=== PATIENT | female | born 1965 | race Two or more races ===

== ENCOUNTER 2024-09-01 12:24 | Inpatient (IN) | payer MEDICAID, SELFPAY ==
--- NOTE | 2024-09-01 | XR_ITS ---
Examination: MRI right foot, without contrast Date and time of exam: September 01, 2024 1816 hours INDICATIONS: Patient stepped on glass beginning 4 days ago with laceration to the plantar surface of the foot between the right first and second metatarsals Technique: Multiple axial sagittal and coronal images of the right foot have been obtained with the Siemens high-resolution 1.5 Chio MRI scanner. Images obtained include T2-weighted fat-suppressed sagittal sections, TR 3500, TE 46, T2 weighted coronal fat suppressed images, TR 3050, TE 84, T2-weighted transverse fat suppressed images, TR 3260, TE 63, proton density transverse images, TR 4720 TE 46, and T1 weighted coronal images, TR 560, TE 13. Findings: Although the images are degraded by patient motion There is edema in the subcutaneous tissue especially dorsum of the foot and also plantar to the second digit Axial image 11 demonstrates early soft tissue abscess multiloculated in the soft tissue between the first and second proximal phalanges, closer to the second digit side, measuring 22 x 11 mm, dorsal Negative for osteomyelitis IMPRESSION: Early soft tissue abscess in the subcutaneous tissue dorsum of the foot between the first and second proximal phalanges as above, measuring 22 x 11 mm, recommend surgical consultation Negative for osteomyelitis
[2024-09-01 13:03] VITALS: BP 126/73; PULSE 80; RESP 18; TEMP 36.7; O2SAT 99; BMI 26.4
--- NOTE | 2024-09-01 13:03 | XR_ITS ---
Examination: Foot, right, 3 views Technique: AP, oblique, lateral views foot, 3 views Date and time of exam: September 01, 2024 1311 hours INDICATIONS: Stepped on glass 3 days ago with redness swelling and pain between the first and second digits. FINDINGS: Soft tissue swelling with air densities between the first and second digits No opaque foreign body No soniya cortical bone destruction IMPRESSION: No soniya cortical bone destruction MRI foot without contrast follow-up would best assess for soft tissue abscess
--- NOTE | 2024-09-01 13:05 | PD.EDRME ---
Rapid Medical Screening Exam RME Arrival date/time: 09/01/24 12:24 59-year-old female presents the emergency department for complaints of infection right foot patient reports stepped on a piece of glass and has infection of the right foot injury 4 days ago Chief Complaint: Extremity Injury, Lower Vital signs: Vital Signs Temperature 98.1 F 09/01/24 13:03 Pulse Rate 80 09/01/24 13:03 Respiratory Rate 18 09/01/24 13:03 Blood Pressure 126/73 09/01/24 13:03 Pulse Oximetry (%) 99 09/01/24 13:03 Oxygen Delivery Method Room Air 09/01/24 13:03
[2024-09-01 13:47] LABS: Lactate (Lactic Acid) 1.2 mMol/L (0.4-2.0)
[2024-09-01 14:06] LABS: Basophils % (Auto) 0 % (0-2.5); Eosinophils % (Auto) 0 % (0-10); Hematocrit 35.5 % (36.0-46.0); Hemoglobin 12.1 g/dL (12.0-16.0); Immature Granulocytes % (Auto) 1 % (0-0); Immature Granulocytes Auto 0.05 Thou/mm3 (0.00-0.00); Lymphocytes # (Auto) 1.2 Thou/mm3 (1.0-4.8); Lymphocytes % (Auto) 12 % (10-50); Mean Corpuscular HGB Conc 34.1 g/dl (31.0-37.0); Mean Corpuscular Hemoglobin 30.9 pg (25.0-35.0); Mean Corpuscular Volume 91 fL (80-100); Monocytes # (Auto) 0.6 Thou/mm3 (0.0-0.8); Monocytes % (Auto) 6 % (0-12); Neutrophils # (Auto) 8.4 Thou/mm3 (1.8-7.7); Neutrophils % (Auto) 82 % (37-80); Nucleated Red Blood Cell % 0 /100 WBC (0); Platelet Count 182 Thou/mm3 (140-440); RDW Standard Deviation 40.2 fL (36.4-46.3); Red Blood Count 3.91 Miln/mm3 (4.00-5.20); White Blood Count 10.3 Thou/mm3 (3.6-11.0)
[2024-09-01 14:21] LABS: Sed Rate (ESR) 74 mm/hr (0-30)
[2024-09-01 14:27] LABS: Alanine Aminotransferase 9 U/L (10-49); Albumin, Serum 4.8 gm/dL (3.4-4.8); Albumin/Globulin Ratio 1.5 (1.2-2.2); Alkaline Phosphatase 104 U/L (46-116); Anion Gap 13 (7-16); Aspartate Amino Transferase 11 U/L (0-34); BUN/Creatinine Ratio 23 Ratio (12-20); Bilirubin,Total 0.9 mg/dL (0.3-1.2); Blood Urea Nitrogen 16 mg/dL (9-23); Calcium 10.3 mg/dL (8.3-10.6); Calcium (Corrected) 10.3 mg/dL (8.5-10.1); Carbon Dioxide 24.1 mMol/L (20.0-31.0); Chloride 100 mMol/L (98-107); Creatinine (Component) 0.7 mg/dL (0.6-1.3); Estimated Creatinine Clearance 69.9 mL/min (>60); Globulin 3.1 gm/dL (2.3-3.5); Glucose 263 mg/dL (74-106); Osmolality,Calculated 284 (275-295); Procalcitonin 0.33 ng/ml (0.0-0.49); Sodium 137 mMol/L (136-145); Total Protein 7.9 gm/dL (5.7-8.2); eGFR > 60 See Note
[2024-09-01 15:54] LABS: Glucose Estimated Average 275 mg/dL (80-131); Hemoglobin A1C 11.2 % Hgb (4.8-6.0)
[2024-09-01 16:29] LABS: C-Reactive Protein > 10.0 mg/dL (0.0-0.9)
[2024-09-01 17:32] VITALS: BP 133/75; PULSE 92; RESP 17; TEMP 36.9; O2SAT 99
--- NOTE | 2024-09-01 17:48 | EDNOTE_ITS ---
Lower Extremity Injury RME/HPI General Chief Complaint: Extremity Injury, Lower Stated Complaint: WORK UP FOR OSTEOMYELITIS Time Seen by Provider: 09/01/24 17:44 Arrival date/time: 09/01/24 12:24 59 year old female with past medical history of DM present to emergency room with daughter with c/o of right foot swelling, redness, pain s/p accidentally stepping in sharp glass 4 days ago. patient is unsure to tetanus status patient went to her PCP which prompt her to come to Ed for evaluation LOCATION: right foot SEVERITY: Symptoms are described as being severe with limitations on activities of daily living QUALITY: Symptoms are described as being dull or achy CONTEXT: step in glass DURATION/TIMING: The symptoms started approximately 4 day ago and have been constant this then, and have been progressive getting worse. ASSOCIATED SYMPTOMS: The patient is unable to identify any other associated symptoms. MODIFYING FACTORS: The patient is unable to identify any alleviating or aggravating symptoms. PERTINENT ROS: denies IVDU, denies any penetrating trauma, no fever, no unexplained nausea or vomiting, no headache, no chest pain/shortness of breath REVIEW OF SYSTEMS: See History of Present Illness - with the exception of those mentioned in the history of present illness, all other systems reviewed and reported as negative GENERAL: In general the patient is awake, interactive, in an emergency department gurney. HEAD/EYES/EARS/NOSE/THROAT: normo-cephalic, atraumatic, mucus membranes are moist, anicteric, palpebral conjunctiva is pink, trachea is midline. CARDIOVASCULAR: regular rate and regular rhythm, no murmurs, heart sounds are not distant, strong pulses in all four extremities that are equal and symmetric bilateral upper and lower extremities, normal capillary refill. CHEST/PULMONARY: normal chest rise and fall, good air movement, clear to auscultation bilaterally, normal inspiratory to expiratory ratios without evidence of respiratory distress. NECK: No midline/Paraspinal tenderness, no step off ROM/Strenght intact No Kernig and bruzinski sign. No trauma ABDOMEN: soft, not tender, no masses appreciated BACK: normal range of motion without pain. NEUROLOGICAL: cranio-facial features are symmetric, moves all four extremities equally without obvious limitations or weakness. EXTREMITY: right foot erythema, warm to touch,and tenderness, foot pad single puncture wound webspace of greater toe and 2nd MTP, no tenderness to palpation over the long bones or large joints of the bilateral upper extremities, SKIN: warm, dry, well-perfused, no jaundice, no rash, no telangiectasias or petechia. PSYCH: calm, cooperative, no evidence of psychosis or agitation RME / HPI RME / HPI Narrative: 09/01/24 12:24 59-year-old female presents the emergency department for complaints of infection right foot patient reports stepped on a piece of glass and has infection of the right foot injury 4 days ago Related Data Allergies Allergy/AdvReac Type Severity Reaction Status Date / Time NKA Allergy Unknown Uncoded 09/01/24 12:26 Course Quality Measures none Orders Category Date Time Status Admit to Inpatient Status Routine Admission 09/01/24 18:15 Active Patient Condition Routine Admission 09/01/24 18:15 Ordered MRI Screening NOW Care 09/01/24 17:52 Active Notify provider NEEDED Care 09/01/24 18:15 Active Consult to General Surgery Stat Cons 09/01/24 18:18 Ordered MR foot RT wo con Stat Exams 09/01/24 Ordered XR foot comp RT min 3V Stat Exams 09/01/24 13:03 Completed A1C [Glycohemoglobin w (eAG)] Stat Lab 09/01/24 13:26 Completed Blood Culture (Lab) Stat Lab 09/01/24 13:26 Received CBC AM DRAW Lab 09/02/24 05:00 Ordered CBC AM DRAW Lab 09/03/24 05:00 Ordered CBC AM DRAW Lab 09/04/24 05:00 Ordered CBC Stat Lab 09/01/24 13:26 Completed CMP [Comprehensive Metabolic Panel] Stat Lab 09/01/24 13:26 Completed CRP [C-Reactive Protein] Stat Lab 09/01/24 13:26 Completed Comprehensive Metabolic Panel AM DRAW Lab 09/02/24 05:00 Ordered Comprehensive Metabolic Panel AM DRAW Lab 09/03/24 05:00 Ordered Comprehensive Metabolic Panel AM DRAW Lab 09/04/24 05:00 Ordered ESR [Sed Rate (ESR)] Stat Lab 09/01/24 13:26 Completed Lactic Acid [Lactate (Lactic Acid)] Stat Lab 09/01/24 13:26 Completed MRSA Nasal Screen Stat Lab 09/01/24 18:19 Ordered Magnesium AM DRAW Lab 09/02/24 05:00 Ordered Phosphorous AM DRAW Lab 09/02/24 05:00 Ordered Procalcitonin Stat Lab 09/01/24 13:26 Completed Acetaminophen Tab [Tylenol Tab] Med 09/01/24 18:15 Active 650 mg PO Q6H PRN Heparin Inj Med 09/01/24 22:00 Active 5,000 unit SC Q8HR Ondansetron Inj [Zofran Inj] Med 09/01/24 18:15 Active 4 mg IV Q6H PRN Tetanus, Diphtheria Toxoids/Pf [Tenivac-Adult] Med 09/01/24 17:48 Discontinued 0.5 ml IMI .ONCE ONE Vancomycin Pharmacy to Dose Med 09/01/24 17:49 Discontinued 1 each IV X1 ONE Vancomycin/Water 1250 mg Ivpb 250 ml Med 09/01/24 18:00 Active IV X1 cefTRIAXone/D5w 1gm IV premix [Rocephin/D5w 1gm IV Med 09/01/24 17:48 Discontinued premix] 1 gm in 50 ml IV X1 oxyCODONE/APAP 5/325 [Percocet 5/325] Med 09/01/24 18:15 Active 1 tab PO Q6H PRN Code Status Routine Oth 09/01/24 18:15 Ordered Oxygen Delivery PRN RT 09/01/24 18:15 Active Reevaluation(s) Reevaluation #1: patient and family agreeable with admission for IV antibiotics MRI foot is pending Vital Signs Vital signs: Vital Signs Temperature 98.1 F 09/01/24 13:03 Pulse Rate 80 09/01/24 13:03 Respiratory Rate 18 09/01/24 13:03 Blood Pressure 126/73 09/01/24 13:03 Pulse Oximetry (%) 99 09/01/24 13:03 Oxygen Delivery Method Room Air 09/01/24 13:03 Extremity Injury, Lower MDM Narrative MDM Narrative:: DISPOSITION: Emergency Department nursing documentation was reviewed including triage complaint, associated symptoms, administration of medications, response to therapy and vital signs. Given the history, physical exam, and review of laboratory and imaging studies the patient is determined to be unsafe for discharge and is being moved into the hospital for further diagnostic tests, treatments, stabilization, and monitored response to therapy. I communicated the history, physical exam, pertinent laboratory and imaging studies to the inpatient physician. The inpatient physician has access to electronic copies of all emergency department laboratory testing and imaging studies as well as medications ordered and administered. Patient data External records reviewed:: [facility] previous records Clinical information provided by:: patient and family Social determinants that could affect healthcare access:: none Patient has the following chronic illnesses:: DM How is presenting disease/condition affected by chronic disease/condition?: exacerbated by Evaluation data The following diagnostics were reviewed and interpreted by me:: lab results and radiology exam(s) Lab and/or radiology exams considered but not ordered:: n/a Interpretation Summary: xray:?Soft tissue swelling with air densities between the first and second digits No opaque foreign body No soniya cortical bone destruction IMPRESSION: No soniya cortical bone destruction MRI foot without contrast follow-up would best assess for soft tissue abscess CRP >10 Esr + lactic/proc: wnl blood glucose 234 MRI foot pending Medications / Prescriptions Medications or Prescriptions considered but not ordered:: n/a Medication administrations:: Medication Administration History Acetaminophen (Acetaminophen 325 Mg Tablet) 650 mg PO Q6H PRN PRN Reason: Fever >100.3 or pain 1-3 Stop: 10/01/24 18:14 Heparin Sodium (Porcine) (Heparin Sod Inj 5000 Unit/Ml Vial) 5,000 unit SC Q8HR DAVY Stop: 09/15/24 21:59 Vancomycin HCl (Vancomycin/Water 1250 Mg Ivpb) 250 mls @ 120 mls/hr IV X1 ONE Stop: 09/01/24 20:04 Ondansetron HCl (Ondansetron Inj 2 Mg/Ml Inj 2 Ml) 4 mg IV Q6H PRN; Protocol PRN Reason: NAUSEA OR VOMITING Stop: 10/01/24 18:14 Oxycodone/Acetaminophen (Oxycodone/Apap 5/325 Tablet) 1 tab PO Q6H PRN PRN Reason: PAIN SCALE 4-10(Mod-Sev Stop: 09/06/24 18:14 Discontinued Medications Ceftriaxone Sodium/Dextrose (Rocephin/D5w 1gm Iv Premix) 1 gm in 50 mls @ 100 mls/hr IV X1 ONE Stop: 09/01/24 18:17 Pharmacy Consult (Vancomycin Pharmacy To Dose 1 Each Each) 1 each IV X1 ONE Stop: 09/01/24 17:50 Tetanus/Diphtheria Toxoids (Tetanus,Diphtheria Toxoids/Pf (Adult) 0.5 Ml Syringe) 0.5 ml IMi .ONCE ONE Stop: 09/01/24 17:49 as state above Consultations Consultation(s) initiated? (list below): Yes Consultation #1 (Physician, Specialty, Details): called out to hospitalist resident for admission, will evaluated patient for admission Diagnosis Most likely diagnosis given after review of the tests above:: foot abscess Admission Indicated Admission indicated?: indicated Admission Request Was there a request for admission?: Yes Admission Attestation Admission request attestation: Discussed case with [schultz ] from Hospitalist service regarding admission. Discussed patients ED course, exam findings, labs, and radiology results. The Hospitalist [agrees,] to accept the patient for admission. Disposition Plan Disposition Plan: Admit Discharge Plan Plan Patient Disposition: Admit Acute Care w/in Hospital Prescriptions/Referrals Referrals: No Primary/Family,Physician [Primary Care Provider] - In 1 week Problem List Clinical Impression: Abscess of foot Patient/Caregiver Discharge Instructions Print Language: Qatari Stand Alone Forms: [employer] Info., Patient Portal Info Letter
--- NOTE | 2024-09-01 18:20 | ESHP_ITS ---
<Statement entered by Jeannette Alvarez MD - 09/02/24 07:39> Patient was seen and examined by me personally. I have directly supervised and reviewed documentation by the team resident and agree with its findings with any exceptions or additional findings as below. Plan of care was discussed with the attending, Dr. Chou. New admission today. Patient is a 59-year-old female with past medical history of type 2 diabetes who presented to the ED on 09/01/2024 due to pain and swelling from the right foot after stepping on a piece of glass 4 days ago. On examination there is edema and erythema between the first and second toes. Foot MRI is pending. Patient was admitted for right foot cellulitis possible abscess, Dr. Aquino will be consulted to follow. Initiated IV Zosyn and doxycycline. Jeannette Alvarez, PGY-2 Documentation for date of: 09/01/24 HPI History of Present Illness Chief complaint: right foot pain, swelling History of present illness: Patient is a 59-year-old female with a previous medical history of type 2 diabetes who came to the ED due to pain, swelling from the right foot. Approximately 4 days ago when she was helping with cleaning she stepped on the shards of glass, after that she developed erythema, edema and pain in the right foot, mostly on the dorsum of the foot. Daughter at the bedside, reported that she tried to apply antimicrobial skin spray without effect. She reported that she is following up with central office frame wirer at [facility]. In the ED: Blood pressure 133/75, pulse 92, saturates well on room air, labs are significant for blood sugar 263, A1c 11.2, C-reactive protein more than 10, corrected calcium is 10.3. Foot x-ray showed soft tissue swelling with air densities between the first and second digits, no soniya cortical bone destruction. MRI of the foot without contrast is pending. Patient is being admitted for right foot cellulitis management and treatment. Social history: Denies smoking and alcohol intake. Surgical history: Denies surgeries Medications: Reports taking blood sugar medication, does not remember the name Allergies: Denies allergies Review of Systems Review of Systems Systems Reviewed: All systems reviewed, normal except as documented Exam Vital Signs Temp Pulse Resp BP Pulse Ox O2 Del Method 98.5 F 92 17 133/75 H 99 Room Air 09/01/24 17:32 09/01/24 17:32 09/01/24 17:32 09/01/24 17:32 09/01/24 17:32 09/01/24 17:32 Narrative Exam Physical Exam General: Awake and in no acute distress. Conversational and non-toxic appearing. HEENT: Normocephalic, atraumatic, mucous membranes moist. Heart: Regular rate and rhythm, no murmurs. Lungs: Clear to auscultation with no wheezing or crackles. Abdomen: Soft, nondistended, nontender, positive bowel sounds. ?No guarding or rebound tenderness. Neurologic: Alert and oriented x3, no gross neurological deficit, and patient able to move all 4 extremities. Extremities: Dorsum of the right foot is swollen, erythematous, hot to the touch. There's minimal amount of dried discharge in between I and II toes. Skin: Dorsum of the right foot is swollen, erythematous. Results: Labs 09/02/24 04:29 09/02/24 04:29 Labs: Short CBC 09/01/24 Range/Units 13:26 WBC 10.3 (3.6-11.0) Thou/mm3 Hgb 12.1 (12.0-16.0) g/dL Hct 35.5 L (36.0-46.0) % Plt Count 182 (140-440) Thou/mm3 BMP 09/01/24 13:26 Sodium 137 Potassium 4.0 Chloride 100 Carbon Dioxide 24.1 BUN 16 Creatinine 0.7 Glucose 263 H Calcium 10.3 Liver Function 09/01/24 Range/Units 13:26 Total Bilirubin 0.9 (0.3-1.2) mg/dL AST 11 (0-34) U/L ALT 9 L (10-49) U/L Alkaline Phosphatase 104 (46-116) U/L Albumin 4.8 (3.4-4.8) gm/dL Quality Measures Quality Measures VTE prophylaxis Medications Home Medications and Allergies Allergies Allergy/AdvReac Type Severity Reaction Status Date / Time NKA Allergy Unknown Uncoded 09/01/24 12:26 Visit Medications Acetaminophen (Acetaminophen 325 Mg Tablet) 650 mg PO Q6H PRN PRN Reason: Fever >100.3 or pain 1-3 Stop: 10/01/24 18:14 Heparin Sodium (Porcine) (Heparin Sod Inj 5000 Unit/Ml Vial) 5,000 unit SC Q8HR [facility] Stop: 09/15/24 21:59 Vancomycin HCl (Vancomycin/Water 1250 Mg Ivpb) 250 mls @ 120 mls/hr IV X1 ONE Stop: 09/01/24 20:04 Ondansetron HCl (Ondansetron Inj 2 Mg/Ml Inj 2 Ml) 4 mg IV Q6H PRN; Protocol PRN Reason: NAUSEA OR VOMITING Stop: 10/01/24 18:14 Oxycodone/Acetaminophen (Oxycodone/Apap 5/325 Tablet) 1 tab PO Q6H PRN PRN Reason: PAIN SCALE 4-10(Mod-Sev Stop: 09/06/24 18:14 Discontinued Medications Ceftriaxone Sodium/Dextrose (Rocephin/D5w 1gm Iv Premix) 1 gm in 50 mls @ 100 mls/hr IV X1 ONE Stop: 09/01/24 18:17 Pharmacy Consult (Vancomycin Pharmacy To Dose 1 Each Each) 1 each IV X1 ONE Stop: 09/01/24 17:50 Tetanus/Diphtheria Toxoids (Tetanus,Diphtheria Toxoids/Pf (Adult) 0.5 Ml Syringe) 0.5 ml IMi .ONCE ONE Stop: 09/01/24 17:49 Assessment & Plan Plan Patient is a 59-year-old female with a previous medical history of type 2 diabetes who came to the ED due to pain, swelling from the right foot. Patient is being admitted for right foot cellulitis management and treatment. #Right foot cellulitis Possible foreign body (glass shards) left in the foot. Patient's right foot is edematous and erythematous. Xray showed air densities in the right foot. Plan: - Zosyn 3.375 q6hr 09/01/24-current - Doxycyclin 100 BID 09/01/24-current - Foot MRI pending - surgery consulted - pain control as needed - blood cultures pending #Type 2 diabetes 09/01/24: A1c 11.2% Plan: - ISS with Accuchecks ACHS Health maintenance: FEN: carbohydrate consistent DVT prophylaxis: heparin 5000 sc q8h GI prophylaxis: none Dispo: med surg CODE STATUS: Full code Plan of care discussed with attending Dr. Chou, PGY-[address] Alvarez. Ana Bowden MD, PGY 1. Attending Provider Attestation/Addendum I, Suzanne Chou DO, attest that I was physically present for the ellis portions of the service and evaluated the patient with the resident and I reviewed and discussed the case with the resident and agree with the resident's findings and plans of care as documented above Patient is a 59-year-old female with past medical history of type 2 diabetes who presented to the ED due to worsening pain in her right foot after she had stepped on glass about 4 days ago. She is noted to have inflammation, edema, erythema and some dark discoloration between the first and second digit of her right foot, as well as dorsum of the metatarsal. She denies any purulent discharge. She denies any fevers or chills. X-ray was done in the ED showing soft tissue swelling with air density between the first and second digit, no evidence of osteomyelitis. MRI was subsequently done showing early soft tissue abscess in the subcutaneous tissue dorsum of the foot between first and second phalanges measuring 22 x 11 mm. Surgery was consulted. Will admit patient to med/surge for IV antibiotics for cellulitis and abscess of the right foot. Patient received tetanus shot in the ED. She is noted to have an A1c of 11.2. Patient states that she takes pills for her diabetes. Patient will need diabetic education and insulin upon discharge. Will obtain blood cultures as well.
[2024-09-01] MEDS: TETANUS,DIPHTHERIA TOXOIDS/PF (ADULT) 0.5 ML SYRINGE IMi (19:23)
[2024-09-01] MEDS: PIPER/TAZO 3.375 GM PREMIX 3.375 GM/50 ML BAG IV ×2 (19:25→23:37)
[2024-09-01 20:41] VITALS: BP 120/71; PULSE 88; RESP 17; TEMP 36.8; O2SAT 97; BMI 25.0
[2024-09-01] MEDS: DOXYCYCLINE INJ 100 MG in SODIUM CHLORIDE 0.9% (POP) 100 ML IV (22:14)
[2024-09-01] MEDS: HEPARIN SOD INJ 5000 UNIT/ML VIAL SC (22:20)
[2024-09-02] VITALS (8 sets, daily range): BP systolic 105–127; BP diastolic 62–77; PULSE 82–90; RESP 16–97; TEMP 36.2–37.4; O2SAT 97–99; BMI 25.1
[2024-09-02] MEDS: PIPER/TAZO 3.375 GM PREMIX 3.375 GM/50 ML BAG IV ×4 (05:32→23:31)
[2024-09-02 05:52] LABS: Basophils % (Auto) 0 % (0-2.5); Eosinophils % (Auto) 0 % (0-10); Hematocrit 31.2 % (36.0-46.0); Hemoglobin 10.8 g/dL (12.0-16.0); Immature Granulocytes % (Auto) 0 % (0-0); Immature Granulocytes Auto 0.04 Thou/mm3 (0.00-0.00); Lymphocytes # (Auto) 1.9 Thou/mm3 (1.0-4.8); Lymphocytes % (Auto) 15 % (10-50); Mean Corpuscular HGB Conc 34.6 g/dl (31.0-37.0); Mean Corpuscular Hemoglobin 30.7 pg (25.0-35.0); Mean Corpuscular Volume 89 fL (80-100); Monocytes # (Auto) 0.9 Thou/mm3 (0.0-0.8); Monocytes % (Auto) 7 % (0-12); Neutrophils # (Auto) 9.6 Thou/mm3 (1.8-7.7); Neutrophils % (Auto) 77 % (37-80); Nucleated Red Blood Cell % 0 /100 WBC (0); Platelet Count 186 Thou/mm3 (140-440); RDW Standard Deviation 39.1 fL (36.4-46.3); Red Blood Count 3.52 Miln/mm3 (4.00-5.20); White Blood Count 12.5 Thou/mm3 (3.6-11.0)
[2024-09-02 06:41] LABS: Alanine Aminotransferase 7 U/L (10-49); Albumin, Serum 4.3 gm/dL (3.4-4.8); Albumin/Globulin Ratio 1.5 (1.2-2.2); Alkaline Phosphatase 94 U/L (46-116); Anion Gap 13 (7-16); Aspartate Amino Transferase 10 U/L (0-34); BUN/Creatinine Ratio 23 Ratio (12-20); Blood Urea Nitrogen 16 mg/dL (9-23); Calcium 9.4 mg/dL (8.3-10.6); Calcium (Corrected) 9.4 mg/dL (8.5-10.1); Carbon Dioxide 24.1 mMol/L (20.0-31.0); Chloride 100 mMol/L (98-107); Creatinine (Component) 0.7 mg/dL (0.6-1.3); Estimated Creatinine Clearance 68.2 mL/min (>60); Globulin 2.8 gm/dL (2.3-3.5); Glucose 237 mg/dL (74-106); Magnesium 2.1 mg/dL (1.6-2.6); Osmolality,Calculated 283 (275-295); Potassium 3.5 mMol/L (3.4-5.1); Sodium 137 mMol/L (136-145); Total Protein 7.1 gm/dL (5.7-8.2); eGFR > 60 See Note
--- NOTE | 2024-09-02 08:24 | PD.SURCONS ---
HPI Consult details Consult date: 09/02/24 Reason for consultation narrative: Right foot cellulitis and abscess History of present illness: 59-year-old female with history of type 2 diabetes was admitted secondary to pain and swelling from the right foot. Approximately 5 days ago she stepped on the shards of glass, after that she developed erythema, edema and pain in the right foot, mostly on the dorsum of the foot. Upon presentation to the emergency department a x-ray was obtained that did not show evidence of osteomyelitis. MRI showed fluid collection suspicious for abscess. Patient was started on IV antibiotics and admitted for further management. Meds Home Medications and Allergies Allergies Allergy/AdvReac Type Severity Reaction Status Date / Time NKA Allergy Unknown Uncoded 09/01/24 12:26 Exam Vital Signs Temp Pulse Resp BP Pulse Ox O2 Del Method 97.2 F 86 18 114/76 99 Room Air 09/02/24 07:36 09/02/24 08:00 09/02/24 08:00 09/02/24 07:36 09/02/24 07:36 09/02/24 07:36 Constitutional Constitutional: no acute distress Routine Extremities Exam Comments: Cellulitis and mild edema on the distal and dorsal aspect of right foot. She had a blister between first and second toes that was drained. No evidence of abscess or fluctuance at this time Assessment & Plan Additional Assessment Additional comments: Cellulitis of right foot with blister that was drained Plan No further intervention indicated. Patient will require IV antibiotics and elevation of right lower extremity to decrease swelling
[2024-09-02] MEDS: DOXYCYCLINE INJ 100 MG in SODIUM CHLORIDE 0.9% (POP) 100 ML IV ×2 (08:51→20:16)
[2024-09-02 09:28] LABS: Cardiac Risk Estimate 3.8 RATIO (3.7-5.6); Cholesterol 138 mg/dL (132-200); HDL Cholesterol 36 mg/dL (40-60); LDL Cholesterol,Calculated 82 mg/dL (0-130); Triglycerides 98 mg/dL (30-150)
--- NOTE | 2024-09-02 11:16 | PC.SS ---
Anna Alan is 59-year-old female admitted to Med-Surg for Right Foot Cellulitis. SS conducted bedside contact with the patient to complete initial assessment and to discuss discharge planning.? Patient confirmed demographic information. Patient identifies her dtr Tracy Alan as her surrogate decision maker; pt did not have access to her number. Patient resides at home with her family. Pt states she is typically able to complete all ADL?s independently, no need for any source of DME. Pts does not possess a PCP and her pharmacy of choice is [facility] in [place]. DC options discussed Pts family will provide transportation upon DC. No further intervention required at this time, social science research assistant would be available to address any further concerns. DC Plan: Home Contact: Guera Alan PCP: None
[2024-09-02] MEDS: INSULIN LISPRO (AdmeLOG) 1 UNIT/0.01 ML UNIT SC ×2 (11:50→17:21)
[2024-09-02] MEDS: HEPARIN SOD INJ 5000 UNIT/ML VIAL SC ×2 (14:22→21:17)
--- NOTE | 2024-09-02 14:25 | PD.RESPRO ---
Documentation for date of: 09/02/24 Subjective Subjective Interval history: Patient was seen and examined by the bedside. No acute overnight events. Patient is afebrile, saturates well on room air, reports pain in the foot has improved, denies fevers, chills, shortness of breath.MRI was negative for osteomyelitis. Dr. Aquino was consulted, will continue with antibiotics. Exam Vital Signs Temp Pulse Resp BP Pulse Ox O2 Del Method 97.9 F 88 16 105/62 97 Room Air 09/02/24 11:56 09/02/24 11:56 09/02/24 11:56 09/02/24 11:56 09/02/24 11:56 09/02/24 11:56 Narrative Exam Physical Exam General: Awake and in no acute distress. Conversational and non-toxic appearing. HEENT: Normocephalic, atraumatic, mucous membranes moist. Heart: Regular rate and rhythm, no murmurs. Lungs: Clear to auscultation with no wheezing or crackles. Abdomen: Soft, nondistended, nontender, positive bowel sounds. ?No guarding or rebound tenderness. Neurologic: Alert and oriented x3, no gross neurological deficit, and patient able to move all 4 extremities. Extremities: Dorsum of the right foot is swollen, erythematous, hot to the touch. There's minimal amount of dried discharge in between I and II toes. Skin: Dorsum of the right foot is swollen, erythematous. Objective Labs 09/02/24 04:29 09/02/24 04:29 Labs: Laboratory Results - last 24 hr 09/01/24 09/02/24 13:26 04:29 WBC 12.5 H RBC 3.52 L Hgb 10.8 L Hct 31.2 L MCV 89 MCH 30.7 MCHC 34.6 RDW Std Deviation 39.1 Plt Count 186 Neut % (Auto) 77 Lymph % (Auto) 15 [place] % (Auto) 7 Eos % (Auto) 0 Baso % (Auto) 0 Neut # (Auto) 9.6 H Lymph # (Auto) 1.9 [place] # (Auto) 0.9 H Eos # (Auto) 0.0 Baso # (Auto) 0.0 Immature Gran # (Auto) 0.04 H Absolute Nucleated RBC 0.00 Immature Gran % 0 Nucleated RBC % 0 Sodium 137 137 Potassium 4.0 3.5 D Chloride 100 100 Carbon Dioxide 24.1 24.1 Anion Gap 13 13 BUN 16 16 Creatinine 0.7 0.7 Estim Creat Clear Calc 69.9 68.2 eGFR > 60 > 60 BUN/Creatinine Ratio 23 H 23 H Glucose [address] Glu mg/dL 275 H Hemoglobin A1c 11.2 H Calculated Osmolality 284 283 Calcium 10.3 9.4 Corrected Calcium 10.3 H 9.4 Phosphorus 4.0 Magnesium 2.1 Total Bilirubin 0.9 1.0 AST 11 10 ALT 9 L 7 L Alkaline Phosphatase 104 94 C-Reactive Prot, Quant > 10.0 H Total Protein 7.9 7.1 Albumin 4.8 4.3 D Globulin 3.1 2.8 Albumin/Globulin Ratio 1.5 1.5 Triglycerides 98 Cholesterol 138 LDL Cholesterol, Calc 82 HDL Cholesterol 36 L Cholesterol/HDL Ratio 3.8 Procalcitonin 0.33 Quality Measures Quality Measures VTE prophylaxis Assessment & Plan Assessment Current Active Medications: Generic Name Dose Route Start Last Admin Trade Name Freq PRN Reason Stop Dose Admin Acetaminophen 650 mg 09/01/24 18:15 Acetaminophen 325 Mg Tablet PO 10/01/24 18:14 Q6H PRN Fever >100.3 or pain 1-3 Dextrose 25 ml 09/01/24 18:38 Dextrose 50%-Water Inj 50 Ml Syringe IV 10/01/24 18:37 Q15MIN PRN BG 50-70 responsive npo pt Dextrose 50 ml 09/01/24 18:38 Dextrose 50%-Water Inj 50 Ml Syringe IV 10/01/24 18:37 Q15MIN PRN BG <50 OR BG <70 & pt unresponsive Glucagon 1 mg 09/01/24 18:38 Glucagon Inj 1 Mg Vial IM Q15MIN PRN BG <70, and no IV access Heparin Sodium (Porcine) 5,000 unit 09/01/24 22:00 09/02/24 14:22 Heparin Sod Inj 5000 Unit/Ml Vial SC 09/15/24 21:59 5,000 unit Q8HR DAVY Administration Piperacillin/Tazobactam/Dextrose 3.375 gm in 50 mls @ 100 mls/hr 09/01/24 19:14 09/02/24 12:12 Zosyn IV 09/08/24 19:13 Infused Q6HR DAVY Infusion Doxycycline Hyclate 100 mg/ 100 mls @ 100 mls/hr 09/01/24 21:00 09/02/24 09:51 Sodium Chloride IV 09/08/24 20:59 Infused BID DAVY Infusion Insulin Human Lispro 0 unit 09/02/24 06:00 09/02/24 11:50 Insulin Lispro (Admelog) 1 Unit/0.01 Ml Unit SC 10/02/24 05:59 3 unit Q6HR DAVY Administration Protocol Ondansetron HCl 4 mg 09/01/24 18:15 Ondansetron Inj 2 Mg/Ml Inj 2 Ml IV 10/01/24 18:14 Q6H PRN NAUSEA OR VOMITING Protocol Oxycodone/Acetaminophen 1 tab 09/01/24 18:15 Oxycodone/Apap 5/325 Tablet PO 09/06/24 18:14 Q6H PRN PAIN SCALE 4-10(Mod-Sev Plan Patient is a 59-year-old female with a previous medical history of type 2 diabetes who came to the ED due to pain, swelling from the right foot. Patient is being admitted for right foot cellulitis management and treatment. #Right foot cellulitis Possible foreign body (glass shards) were observed in the foot. Patient's right foot is edematous and erythematous. Xray showed air densities in the right foot. 09/02/24: Foot MRI negative for osteomyelitis. Plan: - Zosyn 3.375 q6hr 09/01/24-current - Doxycyclin 100 BID 09/01/24-current - surgery consulted, appreciate recommendations - pain control as needed - blood cultures preliminary grew GPC 1/2 - follow-up outpaient for wound care #Type 2 diabetes 09/01/24: A1c 11.2% Plan: - ISS with Acckd WEIRS - dietitian consult Health maintenance: FEN: carbohydrate consistent DVT prophylaxis: heparin 5000 sc q8h GI prophylaxis: none Dispo: med surg CODE STATUS: Full code Plan of care discussed with attending Dr. Cavanaugh, PGY-[address] Alvarez, PGY-[address] Card. Ana Bowden MD, PGY 1. -- ATTESTATION: I saw and examined the patient this morning, and I agree with current management stated by the resident. Will continue to monitor patient during their stay. Patient is a 59-year-old female past medical history of type 2 diabetes who came in to the ER due to pain and swelling of the right foot. Patient stepped on a glass shard with her right foot days prior and today admission after which she is edematous changes as well as erythema of the right foot. MRI of the right foot showed no signs of osteomyelitis. General surgery recommended antibiotic treatment at this time. Patient is on Doxy and Zosyn. Blood cultures came back preliminarily positive for GPC in 1 bottle likely contamination but will follow-up. Will continue managing patient's diabetes as well. Disclaimer: Despite multiple revisions, due to the dictation software being used, the document bellow may not be free of grammatical errors including phonetic/typographic errors. However, this does not deter from our commitment to providing health care in the patient's best interest in mind. Dr. Ariel Card, PGY-3 Attending Provider Attestation/Addendum I attest that I was physically present for the evaluation, physical examination, lab and imaging review of the patient with the residents. I discussed the case with the residents and agree with the findings and plans of care as documented above. At bedside today, patient is states her pain is improving. Vital signs have been stable. Continues to be on IV Zosyn and doxycycline. Blood culture grew GPC on one of the bottles. General surgery following, recommended medical management. Patient currently on insulin regimen for diabetes, we will continue to monitor and add his stool regimen as needed. We will obtain wound care, awaiting final culture results. Mera Cavanaugh MD
--- NOTE | 2024-09-02 15:21 | PC.SS ---
Rounding: Pt receiving IV ABX, pending Dr. Aquino consult
[2024-09-03] VITALS (8 sets, daily range): BP systolic 105–118; BP diastolic 56–73; PULSE 74–88; RESP 16–98; TEMP 36.2–37.6; O2SAT 95–99
[2024-09-03 05:36] LABS: Basophils % (Auto) 0 % (0-2.5); Eosinophils % (Auto) 1 % (0-10); Immature Granulocytes % (Auto) 0 % (0-0); Immature Granulocytes Auto 0.03 Thou/mm3 (0.00-0.00); Lymphocytes % (Auto) 23 % (10-50); Mean Corpuscular HGB Conc 34.4 g/dl (31.0-37.0); Mean Corpuscular Hemoglobin 31.1 pg (25.0-35.0); Mean Corpuscular Volume 90 fL (80-100); Monocytes # (Auto) 0.7 Thou/mm3 (0.0-0.8); Monocytes % (Auto) 8 % (0-12); Neutrophils % (Auto) 68 % (37-80); Nucleated Red Blood Cell % 0 /100 WBC (0); Platelet Count 175 Thou/mm3 (140-440); RDW Standard Deviation 39.6 fL (36.4-46.3); Red Blood Count 3.54 Miln/mm3 (4.00-5.20); White Blood Count 8.8 Thou/mm3 (3.6-11.0)
[2024-09-03] MEDS: PIPER/TAZO 3.375 GM PREMIX 3.375 GM/50 ML BAG IV ×4 (06:04→23:44)
[2024-09-03] MEDS: HEPARIN SOD INJ 5000 UNIT/ML VIAL SC ×3 (06:04→21:14)
[2024-09-03 06:27] LABS: Alanine Aminotransferase < 7 U/L (10-49); Albumin, Serum 4.3 gm/dL (3.4-4.8); Albumin/Globulin Ratio 1.5 (1.2-2.2); Alkaline Phosphatase 90 U/L (46-116); Anion Gap 10 (7-16); Aspartate Amino Transferase < 10 U/L (0-34); BUN/Creatinine Ratio 27 Ratio (12-20); Bilirubin,Total 0.6 mg/dL (0.3-1.2); Blood Urea Nitrogen 19 mg/dL (9-23); Calcium 9.6 mg/dL (8.3-10.6); Calcium (Corrected) 9.6 mg/dL (8.5-10.1); Carbon Dioxide 25.7 mMol/L (20.0-31.0); Chloride 102 mMol/L (98-107); Creatinine (Component) 0.7 mg/dL (0.6-1.3); Estimated Creatinine Clearance 66.3 mL/min (>60); Globulin 2.8 gm/dL (2.3-3.5); Glucose 263 mg/dL (74-106); Osmolality,Calculated 286 (275-295); Potassium 3.7 mMol/L (3.4-5.1); Sodium 138 mMol/L (136-145); Total Protein 7.1 gm/dL (5.7-8.2); eGFR > 60 See Note
[2024-09-03] MEDS: INSULIN LISPRO (AdmeLOG) 1 UNIT/0.01 ML UNIT SC ×3 (08:13→17:38)
[2024-09-03] MEDS: DOXYCYCLINE INJ 100 MG in SODIUM CHLORIDE 0.9% (POP) 100 ML IV ×2 (08:31→21:12)
[2024-09-03] MEDS: INSULIN GLARGINE (Lantus) 5 UNIT/0.05 ML (PER 5 UNITS) SC ×2 (09:02→14:29)
--- NOTE | 2024-09-03 11:20 | PD.SURPROG ---
Documentation for date of: 09/03/24 Subjective Subjective Narrative: Patient is seen and examined. Pain and swelling improving Exam Vital Signs Temp Pulse Resp BP Pulse Ox O2 Del Method 97.2 F 74 16 113/67 95 Room Air 09/03/24 08:00 09/03/24 08:00 09/03/24 08:00 09/03/24 08:00 09/03/24 08:00 09/03/24 08:00 Constitutional Constitutional: no acute distress Routine Extremities Exam Comments: Improvement of cellulitis and edema. No evidence of abscess. She was noted to have some blister with underlying fluid collection that was debrided Assessment & Plan Assessment Additional comments: Cellulitis of right foot without abscess Plan No indications for surgical intervention. We continue IV antibiotics and then discharged on oral antibiotics for additional 7 days.
--- NOTE | 2024-09-03 13:45 | ESPR_ITS ---
Documentation for date of: 09/03/24 Subjective Subjective Interval history: Patient was seen and examined by the bedside. No acute overnight events. Patient reports that pain in the foot improved, daughter also reported that there's translucent drainage between the toes. Wound care was provided, appreciate recommendations. Dietitian consulted, appreciate recommendations. Will repeat cultures and will continue to adjust insulin regimen. Exam Vital Signs Temp Pulse Resp BP Pulse Ox O2 Del Method 97.3 F 78 16 112/56 L 95 Room Air 09/03/24 12:00 09/03/24 12:00 09/03/24 12:09/03/24 12:09/03/24 12:09/03/24 12:00 Narrative Exam Physical Exam General: Awake and in no acute distress. Conversational and non-toxic appearing. HEENT: Normocephalic, atraumatic, mucous membranes moist. Heart: Regular rate and rhythm, no murmurs. Lungs: Clear to auscultation with no wheezing or crackles. Abdomen: Soft, nondistended, nontender, positive bowel sounds. ?No guarding or rebound tenderness. Neurologic: Alert and oriented x3, no gross neurological deficit, and patient able to move all 4 extremities. Extremities: Dorsum of the right foot is swollen, erythematous, hot to the touch. There's minimal amount of dried discharge in between I and II toes. Skin: Dorsum of the right foot is swollen, erythematous with dusky fluctuating bullae in between . Objective Labs 09/04/24 05:45 09/04/24 05:45 Labs: Laboratory Results - last 24 hr 09/03/24 04:30 WBC 8.8 RBC 3.54 L Hgb 11.0 L Hct 32.0 L MCV 90 MCH 31.1 MCHC 34.4 RDW Std Deviation 39.6 Plt Count 175 Neut % (Auto) 68 Lymph % (Auto) 23 [place] % (Auto) 8 Eos % (Auto) 1 Baso % (Auto) 0 Neut # (Auto) 6.0 Lymph # (Auto) 2.0 [place] # (Auto) 0.7 Eos # (Auto) 0.0 Baso # (Auto) 0.0 Immature Gran # (Auto) 0.03 H Absolute Nucleated RBC 0.00 Immature Gran % 0 Nucleated RBC % 0 Sodium 138 Potassium 3.7 Chloride 102 Carbon Dioxide 25.7 Anion Gap 10 BUN 19 Creatinine 0.7 Estim Creat Clear Calc 66.3 eGFR > 60 BUN/Creatinine Ratio 27 H Glucose 263 H Calculated Osmolality 286 Calcium 9.6 Corrected Calcium 9.6 Total Bilirubin 0.6 AST < 10 ALT < 7 L Alkaline Phosphatase 90 Total Protein 7.1 Albumin 4.3 Globulin 2.8 Albumin/Globulin Ratio 1.5 Quality Measures Quality Measures VTE prophylaxis Assessment & Plan Assessment Current Active Medications: Generic Name Dose Route Start Last Admin Trade Name [place] PRN Reason Stop Dose Admin Acetaminophen 650 mg 09/01/24 18:15 Acetaminophen 325 Mg Tablet PO 10/01/24 18:14 Q6H PRN Fever >100.3 or pain 1-3 Dextrose 25 ml 09/01/24 18:38 Dextrose 50%-Water Inj 50 Ml Syringe IV 10/01/24 18:37 Q15MIN PRN BG 50-70 responsive npo pt Dextrose 50 ml 09/01/24 18:38 Dextrose 50%-Water Inj 50 Ml Syringe IV 10/01/24 18:37 Q15MIN PRN BG <50 OR BG <70 & pt unresponsive Glucagon 1 mg 09/01/24 18:38 Glucagon Inj 1 Mg Vial IM Q15MIN PRN BG <70, and no IV access Heparin Sodium (Porcine) 5,000 unit 09/01/24 22:00 09/03/24 06:04 Heparin Sod Inj 5000 Unit/Ml Vial SC 09/15/24 21:59 5,000 unit Q8HR DAVY Administration Piperacillin/Tazobactam/Dextrose 3.375 gm in 50 mls @ 100 mls/hr 09/01/24 19:14 09/03/24 12:03 Zosyn IV 09/08/24 19:13 100 mls/hr Q6HR DAVY Administration Doxycycline Hyclate 100 mg/ 100 mls @ 100 mls/hr 09/01/24 21:00 09/03/24 08:31 Sodium Chloride IV 09/08/24 20:59 100 mls/hr BID DAVY Administration Insulin Glargine 5 unit 09/03/24 09:00 09/03/24 09:02 Insulin Glargine (Lantus) 5 Unit/0.05 Ml (Per 5 Units) SC 10/03/24 08:59 5 unit QDAY DAVY Administration Insulin Human Lispro 0 unit 09/03/24 08:32 09/03/24 12:03 Insulin Lispro (Admelog) 1 Unit/0.01 Ml Unit SC 10/03/24 07:29 5 unit AC DAVY Administration Protocol Ondansetron HCl 4 mg 09/01/24 18:15 Ondansetron Inj 2 Mg/Ml Inj 2 Ml IV 10/01/24 18:14 Q6H PRN NAUSEA OR VOMITING Protocol Oxycodone/Acetaminophen 1 tab 09/01/24 18:15 Oxycodone/Apap 5/325 Tablet PO 09/06/24 18:14 Q6H PRN PAIN SCALE 4-10(Mod-Sev Plan Patient is a 59-year-old female with a previous medical history of type 2 diabetes who came to the ED due to pain, swelling from the right foot. Patient is being admitted for right foot cellulitis management and treatment. #Right foot cellulitis Patient's right foot is edematous and erythematous. Xray showed air densities in the right foot. 09/02/24: Foot MRI negative for osteomyelitis, foreign bofy. Plan: - Zosyn 3.375 q6hr 09/01/24-current - Doxycyclin 100 BID 09/01/24-current - surgery consulted, appreciate recommendations - pain control as needed - blood cultures preliminary grew GPC 1/2 - repeat blood cultures - follow-up outpaient for wound care #Type 2 diabetes 09/01/24: A1c 11.2% Plan: - ISS with Accuchecks ACHS - Glargin 5 U sc - dietitian consult Health maintenance: FEN: carbohydrate consistent DVT prophylaxis: heparin 5000 sc q8h GI prophylaxis: none Dispo: med surg CODE STATUS: Full code Plan of care discussed with attending Dr. Cavanaugh, PGY-[address] Alvarez, PGY-[address] Card. Ana Bowden MD, PGY 1. Attending Provider Attestation/Addendum I attest that I was physically present for the evaluation, physical examination, lab and imaging review of the patient with the residents. I discussed the case with the residents and agree with the findings and plans of care as documented above. Mera Cavanaugh MD
--- NOTE | 2024-09-03 15:19 | PC.SS ---
Rounding: pending rpt cultures, pt on IV ABX and receiving wound care.
[2024-09-04] VITALS (8 sets, daily range): BP systolic 102–129; BP diastolic 57–75; PULSE 61–84; RESP 16–98; TEMP 36.1–36.8; O2SAT 96–99
[2024-09-04] MEDS: HEPARIN SOD INJ 5000 UNIT/ML VIAL SC ×3 (05:46→21:00)
[2024-09-04] MEDS: PIPER/TAZO 3.375 GM PREMIX 3.375 GM/50 ML BAG IV ×4 (05:47→23:07)
[2024-09-04 06:35] LABS: Basophils % (Auto) 0 % (0-2.5); Eosinophils # (Auto) 0.1 Thou/mm3 (0.0-0.5); Eosinophils % (Auto) 1 % (0-10); Hemoglobin 11.5 g/dL (12.0-16.0); Immature Granulocytes % (Auto) 1 % (0-0); Immature Granulocytes Auto 0.05 Thou/mm3 (0.00-0.00); Lymphocytes # (Auto) 1.8 Thou/mm3 (1.0-4.8); Lymphocytes % (Auto) 20 % (10-50); Mean Corpuscular HGB Conc 34.8 g/dl (31.0-37.0); Mean Corpuscular Hemoglobin 30.8 pg (25.0-35.0); Mean Corpuscular Volume 89 fL (80-100); Monocytes # (Auto) 0.6 Thou/mm3 (0.0-0.8); Monocytes % (Auto) 7 % (0-12); Neutrophils # (Auto) 6.4 Thou/mm3 (1.8-7.7); Neutrophils % (Auto) 71 % (37-80); Nucleated Red Blood Cell % 0 /100 WBC (0); Platelet Count 177 Thou/mm3 (140-440); RDW Standard Deviation 38.7 fL (36.4-46.3); Red Blood Count 3.73 Miln/mm3 (4.00-5.20)
[2024-09-04 07:11] LABS: Alanine Aminotransferase < 7 U/L (10-49); Albumin, Serum 4.3 gm/dL (3.4-4.8); Albumin/Globulin Ratio 1.4 (1.2-2.2); Alkaline Phosphatase 91 U/L (46-116); Anion Gap 11 (7-16); Aspartate Amino Transferase 13 U/L (0-34); BUN/Creatinine Ratio 33 Ratio (12-20); Bilirubin,Total 0.5 mg/dL (0.3-1.2); Blood Urea Nitrogen 20 mg/dL (9-23); Calcium 9.7 mg/dL (8.3-10.6); Calcium (Corrected) 9.7 mg/dL (8.5-10.1); Carbon Dioxide 22.9 mMol/L (20.0-31.0); Chloride 103 mMol/L (98-107); Creatinine (Component) 0.6 mg/dL (0.6-1.3); Estimated Creatinine Clearance 77.4 mL/min (>60); Glucose 249 mg/dL (74-106); Osmolality,Calculated 284 (275-295); Potassium 3.6 mMol/L (3.4-5.1); Sodium 137 mMol/L (136-145); Total Protein 7.3 gm/dL (5.7-8.2); eGFR > 60 See Note
[2024-09-04] MEDS: DOXYCYCLINE INJ 100 MG in SODIUM CHLORIDE 0.9% (POP) 100 ML IV ×2 (08:08→20:02)
[2024-09-04] MEDS: INSULIN GLARGINE (Lantus) 5 UNIT/0.05 ML (PER 5 UNITS) 15 UNIT SC (08:08)
[2024-09-04] MEDS: INSULIN LISPRO (AdmeLOG) 1 UNIT/0.01 ML UNIT SC ×3 (08:08→16:28)
--- NOTE | 2024-09-04 10:28 | ESPR_ITS ---
<Statement entered by Jeannette Alvarez MD - 09/05/24 13:27> Patient was seen and examined by me personally. I have directly supervised and reviewed documentation by the team resident and agree with its findings with any exceptions or additional findings as below. Plan of care was discussed with the attending, Dr. Cavanaugh. Patient seen this morning doing well, wound is wrapped and blister appears to have drained. Patient has pain only when stepping on that portion of the foot. Second set of blood cultures are negative at 24 hours, will await 48 hours and plan for likely discharge tomorrow. First set likely contamination in the 1 out of 2, pending final speciation. Pharmacist spoke to patient regarding initiation of insulin for diabetes, patient interested in finger sticks instead of CGM. Patient will be prescribed basal insulin and supplies for discharge. Jeannette Alvarez, PGY-2 Documentation for date of: 09/04/24 Subjective Subjective Interval history: Patient was seen and examined by the bedside. No acute overnight events. Patient reports feeling better, pain in the foot has decreased, most appears when walking, mild in intensity. Repeat blood cultures are pending. Explained the discharge plan and explained the possible complications of uncontrolled diabetes. Patient showed understanding. Daughter was at the bedside, provided translations. Preliminary repeat blood cultures came back negative, previous growth possibly was a contamination. Exam Vital Signs Temp Pulse Resp BP Pulse Ox O2 Del Method 98.1 F 84 16 114/68 97 Room Air 09/04/24 08:00 09/04/24 07:58 09/04/24 08:00 09/04/24 08:00 09/04/24 08:00 09/04/24 08:00 Narrative Exam Physical Exam General: Awake and in no acute distress. Conversational and non-toxic appearing. HEENT: Normocephalic, atraumatic, mucous membranes moist. Heart: Regular rate and rhythm, no murmurs. Lungs: Clear to auscultation with no wheezing or crackles. Abdomen: Soft, nondistended, nontender, positive bowel sounds. ?No guarding or rebound tenderness. Neurologic: Alert and oriented x3, no gross neurological deficit, and patient able to move all 4 extremities. Extremities: Dorsum of the right foot is swollen, erythematous, hot to the touch. [place] on the dorsal surface at the base of the I and II toe, draining serous liquid. There's minimal amount of dried discharge in between I and II toes. Skin: Dorsum of the right foot is swollen, mildly, covered in fresh gauze. Objective Labs 09/04/24 05:45 09/04/24 05:45 Labs: Laboratory Results - last 24 hr 09/04/24 05:45 WBC 9.0 RBC 3.73 L Hgb 11.5 L Hct 33.0 L MCV 89 MCH 30.8 MCHC 34.8 RDW Std Deviation 38.7 Plt Count 177 Neut % (Auto) 71 Lymph % (Auto) 20 [place] % (Auto) 7 Eos % (Auto) 1 Baso % (Auto) 0 Neut # (Auto) 6.4 Lymph # (Auto) 1.8 [place] # (Auto) 0.6 Eos # (Auto) 0.1 Baso # (Auto) 0.0 Immature Gran # (Auto) 0.05 H Absolute Nucleated RBC 0.00 Immature Gran % 1 H Nucleated RBC % 0 Sodium 137 Potassium 3.6 Chloride 103 Carbon Dioxide 22.9 Anion Gap 11 BUN 20 Creatinine 0.6 Estim Creat Clear Calc 77.4 eGFR > 60 BUN/Creatinine Ratio 33 H Glucose 249 H Calculated Osmolality 284 Calcium 9.7 Corrected Calcium 9.7 Total Bilirubin 0.5 AST 13 ALT < 7 L Alkaline Phosphatase 91 Total Protein 7.3 Albumin 4.3 Globulin 3.0 Albumin/Globulin Ratio 1.4 Quality Measures Quality Measures VTE prophylaxis Assessment & Plan Assessment Current Active Medications: Generic Name Dose Route Start Last Admin Trade Name Freq PRN Reason Stop Dose Admin Acetaminophen 650 mg 09/01/24 18:15 Acetaminophen 325 Mg Tablet PO 10/01/24 18:14 Q6H PRN Fever >100.3 or pain 1-3 Dextrose 25 ml 09/01/24 18:38 Dextrose 50%-Water Inj 50 Ml Syringe IV 10/01/24 18:37 Q15MIN PRN BG 50-70 responsive npo pt Dextrose 50 ml 09/01/24 18:38 Dextrose 50%-Water Inj 50 Ml Syringe IV 10/01/24 18:37 Q15MIN PRN BG <50 OR BG <70 & pt unresponsive Glucagon 1 mg 09/01/24 18:38 Glucagon Inj 1 Mg Vial IM Q15MIN PRN BG <70, and no IV access Heparin Sodium (Porcine) 5,000 unit 09/01/24 22:00 09/04/24 05:46 Heparin Sod Inj 5000 Unit/Ml Vial SC 09/15/24 21:59 5,000 unit Q8HR DAVY Administration Piperacillin/Tazobactam/Dextrose 3.375 gm in 50 mls @ 100 mls/hr 09/01/24 19:14 09/04/24 05:47 Zosyn IV 09/08/24 19:13 100 mls/hr Q6HR DAVY Administration Doxycycline Hyclate 100 mg/ 100 mls @ 100 mls/hr 09/01/24 21:00 09/04/24 08:08 Sodium Chloride IV 09/08/24 20:59 100 mls/hr BID DAVY Administration Insulin Glargine 15 unit 09/04/24 09:00 09/04/24 08:08 Insulin Glargine (Lantus) 5 Unit/0.05 Ml (Per 5 Units) SC 10/04/24 08:59 15 unit QDAY DAVY Administration Insulin Human Lispro 0 unit 09/03/24 08:32 09/04/24 08:08 Insulin Lispro (Admelog) 1 Unit/0.01 Ml Unit SC 10/03/24 07:29 4 unit AC DAVY Administration Protocol Insulin Human Lispro 5 unit 09/04/24 11:30 Insulin Lispro (Admelog) 1 Unit/0.01 Ml Unit SC 10/04/24 11:29 AC [facility] Ondansetron HCl 4 mg 09/01/24 18:15 Ondansetron Inj 2 Mg/Ml Inj 2 Ml IV 10/01/24 18:14 Q6H PRN NAUSEA OR VOMITING Protocol Oxycodone/Acetaminophen 1 tab 09/01/24 18:15 Oxycodone/Apap 5/325 Tablet PO 09/06/24 18:14 Q6H PRN PAIN SCALE 4-10(Mod-Sev Plan Patient is a 59-year-old female with a previous medical history of type 2 diabetes who came to the ED due to pain, swelling from the right foot. Patient is being admitted for right foot cellulitis management and treatment. #Right foot cellulitis Patient's right foot is edematous and erythematous. Xray showed air densities in the right foot. 09/02/24: Foot MRI negative for osteomyelitis, foreign body. 09/04/24: Repeat blood cultures preliminary negative. Plan: - Zosyn 3.375 q6hr 09/01/24-current - Doxycyclin 100 BID 09/01/24-current - Will start on oral antibiotics on discharge - surgery consulted, appreciate recommendations - pain control as needed - blood cultures preliminary grew GPC 1/2 - repeat blood cultures - follow-up outpaient for wound care #Type 2 diabetes 09/01/24: A1c 11.2% Plan: - ISS with Accuchecks ACHS - Glargin 15 U sc - Lispro 5U with meals - dietitian consult - patient has received diabetes education Health maintenance: FEN: carbohydrate consistent DVT prophylaxis: heparin 5000 sc q8h GI prophylaxis: none Dispo: med surg CODE STATUS: Full code Plan of care discussed with attending Dr. Cavanaugh, PGY-[address] Alvarez. Ana Bowden MD, PGY 1. Attending Provider Attestation/Addendum I attest that I was physically present for the evaluation, physical examination, lab and imaging review of the patient with the residents. I discussed the case with the residents and agree with the findings and plans of care as documented above. At bedside today, patient continues to feel well. Her foot swelling and pain has been improving. Continues to be on IV Zosyn and vancomycin. Final blood culture from 09/01/2024 still pending. Blood culture from 09/03/2024 has been negative so far. WBC count have been stable. Wound care have been following. Noted to have blood glucose of 215 this morning. We will adjust her insulin regimen. If the next set of blood culture is negative for 48 hours tomorrow, we will plan for discharge. Mera Cavanaugh MD
[2024-09-04] MEDS: INSULIN LISPRO (AdmeLOG) 1 UNIT/0.01 ML UNIT 5 UNIT SC ×2 (11:18→16:29)
--- NOTE | 2024-09-04 12:02 | PD.SURPROG ---
Documentation for date of: 09/04/24 Subjective Subjective Narrative: Patient is seen and examined. Pain is improving Exam Vital Signs Temp Pulse Resp BP Pulse Ox O2 Del Method 98.1 F 84 16 114/68 97 Room Air 09/04/24 08:00 09/04/24 07:58 09/04/24 08:00 09/04/24 08:00 09/04/24 08:00 09/04/24 08:00 Constitutional Constitutional: no acute distress Routine Extremities Exam Comments: Improvement of cellulitis. No evidence of fluctuance or abscess on right foot Assessment & Plan Assessment Additional comments: Cellulitis of right foot improving Plan May discharge on oral antibiotic when medically stable.
--- NOTE | 2024-09-04 12:30 | CHAP ---
[employer] Volunteer prayed silently for them. (Volunteer was in the hospital from 09:15-12:30).
--- NOTE | 2024-09-04 12:58 | PC.CC ---
Request from Dr. Alvarez to provide DM education, insulin training to patient and provide recommendations for CGM vs glucometer. Anticipate patient to discharge on basal insulin. Met patient and daughter, Sheila, at bedside along with Molly RN student and [employer] receiving teller. Patient minimally engaged and deferred to daughter. Per daughter, patient will stay with her for a few days before returning home. Daughter has some experience with insulin injections and SMBG and will be available to assist patient daily with insulin injections. Per daughter, patient is shot averse. Patient verbalizes that she would prefer oral medications. Explained need for insulin, injection technique and insulin pen use. Daughter able to appropriately assemble insulin pen, prime and administer injection into demonstration cube. Discussed CGM vs glucometer and daughter expressed preference for glucometer as patient does not want to wear a CGM. Reviewed glucometer use and FBG targets. Daughter reports patient has an appointment Saturday at [facility] in [place]. Emphasized importance of productive primary care and encouraged open discussion of treatment goals. Emphasized importance of adherence to medication as well as diabetic foot care and daily foot checks. Recommended QD-QOD FBG checks only at this time. Pertinent questions were asked and answered. No additional needs at this time. Recommend insulin pen, pen needles, glucometer and supplies at discharge.
--- NOTE | 2024-09-04 16:11 | PC.SS ---
Follow up note: blood cultures are pending. Pt is on IV antibiotic. Pt will return home upon dc.
[2024-09-05] VITALS: BP 122/74; PULSE 77; RESP 18; TEMP 36.2; O2SAT 99
[2024-09-05 04:00] VITALS: BP 107/67; PULSE 73; RESP 18; TEMP 36.6; O2SAT 99
[2024-09-05] MEDS: PIPER/TAZO 3.375 GM PREMIX 3.375 GM/50 ML BAG IV ×2 (05:18→12:04)
[2024-09-05] MEDS: HEPARIN SOD INJ 5000 UNIT/ML VIAL SC (05:18)
[2024-09-05 06:34] LABS: Anion Gap 9 (7-16); BUN/Creatinine Ratio 27 Ratio (12-20); Blood Urea Nitrogen 19 mg/dL (9-23); Calcium 9.6 mg/dL (8.3-10.6); Carbon Dioxide 26.1 mMol/L (20.0-31.0); Chloride 104 mMol/L (98-107); Creatinine (Component) 0.7 mg/dL (0.6-1.3); Estimated Creatinine Clearance 66.3 mL/min (>60); Glucose 231 mg/dL (74-106); Osmolality,Calculated 286 (275-295); Potassium 3.4 mMol/L (3.4-5.1); Sodium 139 mMol/L (136-145); eGFR > 60 See Note
[2024-09-05 07:58] LABS: Basophils % (Auto) 0 % (0-2.5); Eosinophils # (Auto) 0.1 Thou/mm3 (0.0-0.5); Eosinophils % (Auto) 1 % (0-10); Hematocrit 32.2 % (36.0-46.0); Hemoglobin 11.2 g/dL (12.0-16.0); Immature Granulocytes % (Auto) 0 % (0-0); Immature Granulocytes Auto 0.03 Thou/mm3 (0.00-0.00); Lymphocytes # (Auto) 2.2 Thou/mm3 (1.0-4.8); Lymphocytes % (Auto) 24 % (10-50); Mean Corpuscular HGB Conc 34.8 g/dl (31.0-37.0); Mean Corpuscular Hemoglobin 30.7 pg (25.0-35.0); Mean Corpuscular Volume 88 fL (80-100); Monocytes # (Auto) 0.6 Thou/mm3 (0.0-0.8); Monocytes % (Auto) 7 % (0-12); Neutrophils # (Auto) 6.3 Thou/mm3 (1.8-7.7); Neutrophils % (Auto) 68 % (37-80); Nucleated Red Blood Cell % 0 /100 WBC (0); Platelet Count 235 Thou/mm3 (140-440); RDW Standard Deviation 38.7 fL (36.4-46.3); Red Blood Count 3.65 Miln/mm3 (4.00-5.20); White Blood Count 9.4 Thou/mm3 (3.6-11.0)
[2024-09-05 08:00] VITALS: BP 127/75; PULSE 72; RESP 18; TEMP 36.1; O2SAT 99
[2024-09-05 08:07] VITALS: PULSE 73; RESP 20; RESP 96
[2024-09-05] MEDS: INSULIN LISPRO (AdmeLOG) 1 UNIT/0.01 ML UNIT 5 UNIT SC ×2 (08:27→12:04)
[2024-09-05] MEDS: INSULIN GLARGINE (Lantus) 5 UNIT/0.05 ML (PER 5 UNITS) 15 UNIT SC (08:28)
[2024-09-05] MEDS: INSULIN LISPRO (AdmeLOG) 1 UNIT/0.01 ML UNIT SC ×2 (08:28→12:04)
[2024-09-05] MEDS: DOXYCYCLINE INJ 100 MG in SODIUM CHLORIDE 0.9% (POP) 100 ML IV (08:29)
[2024-09-05 12:00] VITALS: BP 97/64; PULSE 76; RESP 16; TEMP 36.2; O2SAT 98
--- NOTE | 2024-09-05 13:43 | PD.RESDS ---
Planned Discharge Date 09/05/24 DS: Providers Provider Date of admission: 09/01/24 18:15 Primary care physician: Physician No Primary/Family Admitting Provider: Suzanne Chou DO Attending Provider on Admission: Mera Cavanaugh MD Consults: 09/01/24 18:18 Consult to General Surgery Stat Comment: right foot cellulitis Consulting Provider: Duane Aquino 09/01/24 22:39 Referral Al Routine Comment: 09/02/24 14:42 Referral Wound Care Routine Comment: 09/03/24 11:22 Referral OP Wound Healing Dept Routine Comment: Instructions: Right foot cellulitis after stepping on glass 4 days prior to admission. DM. Attending Provider on DC: Ariel Card MD Discharging Provider: Ariel Card MD Hospital Course Hospital Course Hospital course: Patient was seen and examined by the bedside. No acute overnight events. Patient reports feeling better, pain in the foot has decreased, most appears when walking, mild in intensity. Repeat blood cultures are pending. Explained the discharge plan and explained the possible complications of uncontrolled diabetes. Patient showed understanding. Daughter was at the bedside, provided translations. Preliminary repeat blood cultures came back negative, previous growth possibly was a contamination. Time Spent with Patient Time attestation: Total time spent providing and/or coordinating discharge services: Time spent: Less than 30 minutes Exam Vital Signs Temp Pulse Resp BP Pulse Ox O2 Del Method 97.1 F 76 16 97/64 98 Room Air 09/05/24 12:00 09/05/24 12:00 09/05/24 12:00 09/05/24 12:00 09/05/24 12:00 09/05/24 12:00 Discharge Plan Plan Patient Disposition: HOME (Self Care) Patient condition on transfer: Stable Care Plan Goals: - Follow up at [facility], [address] [place] [address]. Call [phone] for appointment. -Take glargine (lantus) insulin 15 units once a day at night, - Take metformin 500mg twice a day - Follow up with PCP in 1-2 weeks 4) Wound care to right foot: may shower than change dressing. Ambulate using heel of foot until toes are healed. -Wash hands with soap and water -Remove old dressing and cleanser with wound cleanser spray and pat dry with gauze. -Wash hands again. -Swab wound with betadine and allow to dry. -Weave alginate rope between toes. -Cover with loose sock If active bleeding occurs, apply tight dressing and return to MD or ER. ? Notify primary doctor or return to Emergency Room if any of the following: ? Fever above 100.6? F. ? Increased pain ? Increase swelling ? Red streaks around your wound ? Drainage becomes foul smelling or changes color ? The wound is larger or deeper ? The wound looks dried out or dark ? Bleeding that does not stop with holding pressure Prescriptions/Referrals Prescriptions/Med Rec: New cephalexin 500 mg tablet 500 mg PO BID 9 Days Qty: 18 0RF insulin glargine 100 unit/mL (3 mL) insulin pen, sensor 15 unit subcut QPM Qty: 15 0RF (DME) Accu-Chek Guide test strips Strip See Rx Instructions .Route Qty: 100 0RF Rx Instructions: As directed (DME) blood-glucose meter [Accu-Chek Guide Glucose Meter] Misc See Rx Instructions .Route Qty: 1 0RF Rx Instructions: As directed (DME) lancets [Accu-Chek Softclix Lancets] Misc See Rx Instructions .Route Qty: 200 0RF Rx Instructions: As directed (DME) pen needle, diabetic [Advocate Pen Needle] 31 gauge x 3/16 needle See Rx Instructions .Route Qty: 100 0RF Rx Instructions: As directed metformin 500 mg tablet 500 mg PO BID 30 Days Qty: 60 0RF Referrals: No Primary/Family,Physician [Primary Care Provider] - Patient/Caregiver Discharge Instructions Education Materials: Nutrition for Wound Healing, How to Check Your Blood Sugar, Wound Care, Changing Dressing Dc, Blood Sugar Monitoring and ..., Glucose Check Steps, Insulin Pen Clear Insulin Steps, Diabetes- Measuring Glucose at Home, Glucose Monitoring Devices Print Language: Uruguayan Stand Alone Forms: [employer] Award Info., Patient Portal Info Letter Discharge Order Discharge Orders: Discharge (Routine); Ordered 09/05/24 Ordered By: Ariel Card MD Attestestation MD Attestation I attest that I was physically present for the evaluation, physical examination, lab and imaging review of the patient with the residents. I discussed the case with the residents and agree with the findings and plans of care as documented above. Mera Cavanaugh MD
[2024-09-05 14:51] VITALS: BP 102/68; PULSE 84; RESP 18; TEMP 36.4; O2SAT 96
--- NOTE | 2024-09-05 14:54 | PC.NURSE ---
Bulgarian interpretor Jeison HOFFMAN used for discharge instructions. Education given to patient and daughter about wound care. Instructions and supplies given. Showed daughter how to change dressing and to check for swelling, redness, increased discharge, foul smell. Also provided instructions on wound care clinic where patient will be going for appt for follow up. Retail Key Holder at bedside to go over glucometer instructions, education also printed for patient and daughter. Talked to social work associate, pt able to walk on heel but ordered crutches for better mobility at home. Pt and daughter verbalized no further questions and ready for discharge.
--- NOTE | 2024-09-05 16:48 | ESDS_ITS ---
Planned Discharge Date 09/05/24 DS: Providers Provider Date of admission: 09/01/24 18:15 Primary care physician: Physician No Primary/Family Admitting Provider: Suzanne Chou DO Attending Provider on Admission: Mera Cavanaugh MD Consults: 09/01/24 18:18 Consult to General Surgery Stat Comment: right foot cellulitis Consulting Provider: Duane Aquino 09/01/24 22:39 Referral Al Routine Comment: 09/02/24 14:42 Referral Wound Care Routine Comment: 09/03/24 11:22 Referral OP Wound Healing Dept Routine Comment: Instructions: Right foot cellulitis after stepping on glass 4 days prior to admission. DM. Attending Provider on DC: Ana Bowden MD Discharging Provider: Ana Bowden MD DS: Diagnosis Problem List Completed Was Problem List Reviewed/Reconciled?: Yes Hospital Course Hospital Course Hospital course: Patient is a 59-year-old female with a previous medical history of type 2 diabetes who came to the ED on 09/01/24 due to pain, swelling from the right foot. Patient was being admitted for right foot cellulitis management and treatment.According to the patient, approximately 4 days before admission she stepped on the shards of glass, after that she developed erythema, edema and pain in the right foot, mostly on the dorsum of the foot with grayish area in between first and second toe. She tried antimicrobial skin spray without effect. In the ED she was hemodynamically stable, saturated adequately on room air, labs were significant for blood sugar of 263, A1c was 11.2%, C-reactive protein more than 10, corrected calcium 10.3. Foot x-ray shows soft tissue swelling with air densities between the first and second digits, no soniya cortical bone destruction. MRI of the foot without contrast showed soft tissue inflammation, negative for osteomyelitis and foreign body retainment. She was admitted for right foot cellulitis management and treatment. General surgeon Dr. Aquino was consulted, recommended conservative treatment with antibiotics and wound care. Patient was started on insulin regimen, IV antibiotics, received wound care and diabetes education. Initial set of blood cultures grew 1 out of 2 Staphylococcus hominis, repeat blood cultures were negative for growth after 48 hours. While receiving treatment, patient's condition has significantly improved, pain has decreased and she was able to step on the foot more. Patient was seen and examined by the bedside and was medically cleared for discharge. Hospital diagnoses: #Right foot cellulitis #Type 2 diabetes Discharge recommendations: - Follow up at [facility], [address] [place] [address]. Call [phone] for appointment. -Take glargine (lantus) insulin 15 units once a day at night, - Take metformin 500mg twice a day - Follow up with PCP in 1-2 weeks 4) Wound care to right foot: may shower than change dressing. Ambulate using heel of foot until toes are healed. -Wash hands with soap and water -Remove old dressing and cleanser with wound cleanser spray and pat dry with gauze. -Wash hands again. -Swab wound with betadine and allow to dry. -Weave alginate rope between toes. -Cover with loose sock If active bleeding occurs, apply tight dressing and return to MD or ER. ? Notify primary doctor or return to Emergency Room if any of the following: ? Fever above 100.6? F. ? Increased pain ? Increase swelling ? Red streaks around your wound ? Drainage becomes foul smelling or changes color ? The wound is larger or deeper ? The wound looks dried out or dark ? Bleeding that does not stop with holding pressure Plan of care discussed with attending Dr. Cavanaugh and PGY-[address] Card. Ana Bowden MD, PGY 1. Time Spent with Patient Time attestation: Total time spent providing and/or coordinating discharge services: Time spent: Less than 30 minutes Exam Vital Signs Temp Pulse Resp BP Pulse Ox O2 Del Method 97.5 F 84 18 102/68 96 Room Air 09/05/24 14:51 09/05/24 14:51 09/05/24 14:51 09/05/24 14:51 09/05/24 14:51 09/05/24 14:51 Narrative Exam Physical Exam General: Awake and in no acute distress. Conversational and non-toxic appearing. HEENT: Normocephalic, atraumatic, mucous membranes moist. Heart: Regular rate and rhythm, no murmurs. Lungs: Clear to auscultation with no wheezing or crackles. Abdomen: Soft, nondistended, nontender, positive bowel sounds. ?No guarding or rebound tenderness. Neurologic: Alert and oriented x3, no gross neurological deficit, and patient able to move all 4 extremities. Extremities: Dorsum of the right foot is swollen, erythematous, hot to the touch. Bulla on the dorsal surface at the base of the I and II toe, draining serous liquid. There's minimal amount of dried discharge in between I and II toes. Skin: Dorsum of the right foot is swollen, mildl erythematousy, covered in fresh gauze. Discharge Plan Plan Patient Disposition: HOME (Self Care) Patient condition on transfer: Stable Care Plan Goals: - Follow up at [facility], [address] [place] [address]. Call [phone] for appointment. -Take glargine (lantus) insulin 15 units once a day at night, - Take metformin 500mg twice a day - Follow up with PCP in 1-2 weeks 4) Wound care to right foot: may shower than change dressing. Ambulate using heel of foot until toes are healed. -Wash hands with soap and water -Remove old dressing and cleanser with wound cleanser spray and pat dry with gauze. -Wash hands again. -Swab wound with betadine and allow to dry. -Weave alginate rope between toes. -Cover with loose sock If active bleeding occurs, apply tight dressing and return to MD or ER. ? Notify primary doctor or return to Emergency Room if any of the following: ? Fever above 100.6? F. ? Increased pain ? Increase swelling ? Red streaks around your wound ? Drainage becomes foul smelling or changes color ? The wound is larger or deeper ? The wound looks dried out or dark ? Bleeding that does not stop with holding pressure Prescriptions/Referrals Prescriptions/Med Rec: New cephalexin 500 mg tablet 500 mg PO BID 9 Days Qty: 18 0RF insulin glargine 100 unit/mL (3 mL) insulin pen, sensor 15 unit subcut QPM Qty: 15 0RF (DME) Accu-Chek Guide test strips Strip See Rx Instructions .Route Qty: 100 0RF Rx Instructions: As directed (DME) blood-glucose meter [Accu-Chek Guide Glucose Meter] Misc See Rx Instructions .Route Qty: 1 0RF Rx Instructions: As directed (DME) lancets [Accu-Chek Softclix Lancets] Misc See Rx Instructions .Route Qty: 200 0RF Rx Instructions: As directed (DME) pen needle, diabetic [Advocate Pen Needle] 31 gauge x 3/16 needle See Rx Instructions .Route Qty: 100 0RF Rx Instructions: As directed metformin 500 mg tablet 500 mg PO BID 30 Days Qty: 60 0RF Referrals: No Primary/Family,Physician [Primary Care Provider] - Patient/Caregiver Discharge Instructions Education Materials: Nutrition for Wound Healing, How to Check Your Blood Sugar, Wound Care, Changing Dressing Dc, Blood Sugar Monitoring and ..., Glucose Check Steps, Insulin Pen Clear Insulin Steps, Diabetes- Measuring Glucose at Home, Glucose Monitoring Devices Print Language: Burundian Stand Alone Forms: [employer] Award Info., Patient Portal Info Letter Discharge Order Discharge Orders: Discharge (Routine); Ordered 09/05/24 Ordered By: Ariel Card Quality Discharge Quality Measures VTE prophylaxis MD Attestestation MD Attestation I attest that I was physically present for the evaluation, physical examination, lab and imaging review of the patient with the residents. I discussed the case with the residents and agree with the findings and plans of care as documented above. Mera Cavanaugh MD
== END 2024-09-05 15:12 | disposition home or self-care (01) | DRG 383 ==
LOC: SERX 18:00 → SERHOLD 18:40 → S3NX 20:29
PROVIDERS: Nurse Practitioner Primary Care; Student in an Organized Health Care Education/Training Program; Admitting Provider Internal Medicine; Emergency Provider Emergency Medicine; Visit Provider Student in an Organized Health Care Education/Training Program
DX: L03.115 Cellulitis of right lower limb (principal); E11.9 Type 2 diabetes mellitus without complications; W25.XXXA Contact with sharp glass, initial encounter; L02.611 Cutaneous abscess of right foot; Z23 Encounter for immunization; Z79.4 Long term (current) use of insulin; B95.7 Other staphylococcus as the cause of diseases classified elsewhere
CPT/HCPCS: 36415; 73630; 73718; 80048; 80053; 80061; 83036; 83605; 83735; 84100; 84145; 85025; 85652; 86140; 87040; 87077; 87081; 87186; 90471; 90714; 99285; J1643; J1815; J2543; J3490

== ENCOUNTER → 2024-11-09 | Outpatient (CLI) | payer MEDICAID, SELFPAY | END | disposition home or self-care (01) | LOC: SWHD 08:22 | PROVIDERS: Visit Provider Student in an Organized Health Care Education/Training Program | DX: E11.621 Type 2 diabetes mellitus with foot ulcer (principal); S91.114A Laceration without foreign body of right lesser toe(s) without damage to nail, initial encounter; X58.XXXA Exposure to other specified factors, initial encounter; E11.51 Type 2 diabetes mellitus with diabetic peripheral angiopathy without gangrene; Z79.4 Long term (current) use of insulin; Z79.84 Long term (current) use of oral hypoglycemic drugs; F17.200 Nicotine dependence, unspecified, uncomplicated; F10.90 Alcohol use, unspecified, uncomplicated | CPT/HCPCS: 17250; 99213; G0463 ==

== ENCOUNTER → 2024-11-23 | Outpatient (CLI) | payer MEDICAID, SELFPAY | END | disposition home or self-care (01) | PROVIDERS: PCP Physician Assistant; Referring Provider Physician Assistant; Visit Provider Student in an Organized Health Care Education/Training Program | DX: E11.621 Type 2 diabetes mellitus with foot ulcer (principal); S91.114A Laceration without foreign body of right lesser toe(s) without damage to nail, initial encounter; X58.XXXA Exposure to other specified factors, initial encounter; L97.519 Non-pressure chronic ulcer of other part of right foot with unspecified severity; E11.51 Type 2 diabetes mellitus with diabetic peripheral angiopathy without gangrene; Z79.4 Long term (current) use of insulin; Z79.84 Long term (current) use of oral hypoglycemic drugs; F17.200 Nicotine dependence, unspecified, uncomplicated; F10.90 Alcohol use, unspecified, uncomplicated | CPT/HCPCS: 99213; G0463 ==

== ENCOUNTER → 2024-12-14 | Outpatient (CLI) | payer MEDICAID, SELFPAY | END | disposition home or self-care (01) | LOC: SWHD 08:33 | PROVIDERS: PCP Physician Assistant; Referring Provider Physician Assistant; Visit Provider Student in an Organized Health Care Education/Training Program | DX: E11.621 Type 2 diabetes mellitus with foot ulcer (principal); S91.114A Laceration without foreign body of right lesser toe(s) without damage to nail, initial encounter; X58.XXXA Exposure to other specified factors, initial encounter; L97.519 Non-pressure chronic ulcer of other part of right foot with unspecified severity; L85.3 Xerosis cutis; F17.200 Nicotine dependence, unspecified, uncomplicated; E11.40 Type 2 diabetes mellitus with diabetic neuropathy, unspecified; F10.90 Alcohol use, unspecified, uncomplicated; Z79.4 Long term (current) use of insulin; Z79.84 Long term (current) use of oral hypoglycemic drugs | CPT/HCPCS: 99212; G0463 ==